=== PATIENT | female | born 1970 | race Two or more races ===

== ENCOUNTER 2023-05-21 16:11 | Emergency (ER) | payer OTHER ==
[~2023-05-21] VITALS: Ht 165.1 cm; Wt 74.8 kg
[~2023-05-21 16:11] MED LIST: PRENATAL1 TAB PO
== END 2023-05-21 22:25 | disposition home or self-care (01) ==
LOC: ER 16:11
DX: T23.401A Corrosion of unspecified degree of right hand, unspecified site, initial encounter (principal); W86.0XXA Exposure to domestic wiring and appliances, initial encounter; Y93.89 Activity, other specified; Y92.89 Other specified places as the place of occurrence of the external cause; Z91.041 Radiographic dye allergy status

== ENCOUNTER 2025-03-25 09:35 | Emergency (ER) | payer OTHER ==
[~2025-03-25] VITALS: Ht 165.1 cm; Wt 69.4 kg
[2025-03-25] MEDS ORDERED: TRAMADOL HCL 50 MG TABLET PO STA (10:20)
[2025-03-25] MEDS ORDERED: KETOROLAC TROMETHAMINE 60 MG VIAL IM STA (10:20)
[2025-03-25] MEDS ORDERED: KETOROLAC TROMETHAMINE 60 MG VIAL IM ONE (10:38)
== END 2025-03-25 13:06 | disposition home or self-care (01) ==
LOC: ER 11:43
DX: S90.31XA Contusion of right foot, initial encounter (principal); X58.XXXA Exposure to other specified factors, initial encounter; Y93.89 Activity, other specified; Y92.89 Other specified places as the place of occurrence of the external cause; Y99.9 Unspecified external cause status; Z88.8 Allergy status to other drugs, medicaments and biological substances

== ENCOUNTER 2025-06-21 20:12 | Emergency (ER) | payer OTHER ==
[~2025-06-21] VITALS: Ht 160 cm; Wt 68.0 kg
[2025-06-21 22:07] LABS: BASO % 0.6 % (0.1-1.2); EOS # 0.19 (0.04-0.54); EOS % 5.3 % (0.7-7.0); LYMPH # 0.98 (1.18-3.74); LYMPH % 27.3 % (19.3-53.1); MEAN PLATELET VOLUME 8.60 fl (9.4-12.4); MONO # 0.28 (0.24-0.82); MONO % 7.8 % (4.7-12.5); NEUT # 2.09 (1.56-6.13); NEUT % 58.2 % (34.0-71.1); RED CELL DISTRIBUTION WIDTH 13.0 % (11.6-14.4)
[2025-06-21 22:16] LABS: COVID-19 AG NEGATIVE (NEGATIVE)
[2025-06-21 22:24] LABS: ALT/SGPT 158.0 U/L (12-78); AST/SGOT 72.0 U/L (15-37); BILIRUBIN TOTAL 0.29 mg/dL (0.3-1.2); BUN CREA RATIO 14.0 (7.0-25.0); CREATININE SERUM 0.9 mg/dL (0.55-1.02); GFR 65.25; GLOBULINA 3.5 G/DL (2.4-3.5); GLUCOSE FASTING 134.0 mg/dL (65-100); OSMOLALITY SERUM 289.0 MOSM/KG (275-295)
[2025-06-22] MEDS ORDERED: ACETAMINOPHEN500 M1 PO (00:59)
[2025-06-22] MEDS ORDERED: SALINE MIST45 ML (01:08)
== END 2025-06-22 01:52 | disposition home or self-care (01) ==
LOC: ER 20:12
PROVIDERS: Preventive Medicine Public Health & General Preventive Medicine
DX: B34.9 Viral infection, unspecified (principal); Z20.822 Contact with and (suspected) exposure to COVID-19; Z91.041 Radiographic dye allergy status